=== PATIENT | female | born 1965 | race Caucasian/White ===

== ENCOUNTER → 2016-10-03 | Outpatient (CLI) | payer OTHER ==
[~2016-10-03] MED LIST: BLAC20TA PO; CEPH-367 PO; CINN500C2 PO; DIAZ5TAB PO; DOXY100T9 PO; LOSA50TA2 PO; MELATONIN; METF500T4 PO; MORP30TA81 PO; MORP60TA34 PO; OMEG-69 PO; OTC VITAMINS; REGADENOSON 0.4 MG/5 ML SYRINGE ONE
== END | disposition home or self-care (01) ==
LOC: CFH 07:46
PROVIDERS: ATTEND Internal Medicine Cardiovascular Disease
DX: Z01.810 Encounter for preprocedural cardiovascular examination (principal); I10 Essential (primary) hypertension; E11.9 Type 2 diabetes mellitus without complications; I35.1 Nonrheumatic aortic (valve) insufficiency; I34.0 Nonrheumatic mitral (valve) insufficiency; I07.1 Rheumatic tricuspid insufficiency; I37.1 Nonrheumatic pulmonary valve insufficiency
CPT/HCPCS: 78452; 93017; 93306; A9502; J2785

== ENCOUNTER 2016-12-06 06:07 | Inpatient (IN) | payer OTHER ==
[2016-12-05 12:26] VITALS: BP 131/90
[2016-12-05 12:30] LABS: BLOOD UREA NITROGEN 17 mg/dL (7-18)
[2016-12-05 13:00] LABS: ASPARTATE AMINO TRANSFERASE 13 U/L (15-37); TOTAL IRON BINDING CAPACITY 416 mcg/dL (250-450); TRANSFERRIN 313 mg/dL (200-360)
[~2016-12-06] VITALS: Ht 167.6 cm; Wt 97.0 kg
[~2016-12-06 06:07] MED LIST changes: +ASPI-496 PO; +CARV3.1212 PO; +EXEN5PEN2 INJ; +GARL5000 PO; +METF10002 PO; -REGADENOSON 0.4 MG/5 ML SYRINGE ONE
[2016-12-06] MEDS ORDERED: LACTATED RINGERS 1,000 ML IV SCH (06:46)
[2016-12-06] MEDS ORDERED: MIDAZOLAM 1 MG/ML, 2ML ONE (06:49)
[2016-12-06] MEDS ORDERED: KETAMINE 10 MG/ML, 20ML ONE (06:49)
[2016-12-06] MEDS ORDERED: HYDROmorphone 2 MG/ML, 1ML ONE ×3 (06:49→10:11)
[2016-12-06] MEDS ORDERED: FENTANYL PF 250 MCG/5ML ONE (06:49)
[2016-12-06] MEDS ORDERED: APREPITANT 40 MG CAPSULE PO STA (06:57)
[2016-12-06] MEDS ORDERED: BUPIVACAINE/PF-EPI 0.5% 1:200K ONE (06:58)
[2016-12-06] MEDS ORDERED: MEPERIDINE/PF 25MG/0.5ML IVPush PRN (07:00)
[2016-12-06] MEDS ORDERED: PROMETHAZINE 25 MG/ML, 1ML IV PRN (07:00)
[2016-12-06] MEDS: INSULIN REGULAR 100 UNITS/ML, 3ML VIAL SQ-INSULIN SCH ×2 (07:00→11:00)
[2016-12-06] MEDS ORDERED: FENTANYL PF 100 MCG/2ML IV PRN (07:00)
[2016-12-06] MEDS ORDERED: ACETAMINOPHEN 325 MG TABLET PO PRN (07:00)
[2016-12-06] MEDS ORDERED: OXYcodone 5 MG/5 ML ORAL.SOL UDC PO PRN (07:00)
[2016-12-06] MEDS ORDERED: MIDAZOLAM 1 MG/ML, 2ML IV PRN (07:00)
[2016-12-06] MEDS ORDERED: LABETALOL 5MG/ML, 20ML IV PRN (07:00)
[2016-12-06] MEDS ORDERED: ONDANSETRON 2MG/ML, 2ML IVPush PRN (07:00)
[2016-12-06] MEDS ORDERED: HYDROmorphone 1 MG/ML, 1ML ONE (08:29)
[2016-12-06] MEDS ORDERED: LORazepam 2 MG/ML, 1ML IV PRN (09:00)
[2016-12-06] MEDS ORDERED: DIPHENHYDRAMINE 50 MG/ML, 1ML IV PRN (09:00)
[2016-12-06] MEDS ORDERED: INSULIN SINGLE DOSE, ER SQ-INSULIN ONE (09:18)
[2016-12-06] MEDS ORDERED: INSULIN REGULAR 100 UNITS/ML, 3ML VIAL SQ-INSULIN STA (09:22)
[2016-12-06] MEDS ORDERED: hydrALAzine 20 MG/ML, 1ML ONE (09:43)
[2016-12-06] MEDS ORDERED: ONDANSETRON 2MG/ML, 2ML ONE ×2 (09:43→11:04)
[2016-12-06] MEDS: HYDROmorphone 1 MG/ML, 1ML IV PRN ×8 (09:47→10:53)
[2016-12-06] MEDS: hydrALAzine 20 MG/ML, 1ML IV PRN ×2 (09:50→10:14)
[2016-12-06] MEDS ORDERED: LORazepam 2 MG/ML, 1ML ONE (10:17)
[2016-12-06] MEDS: INSULIN ASPART 100 UNITS/ML, PEN SQ-INSULIN SCH ×3 (11:00→22:17)
[2016-12-06] MEDS ORDERED: DEXAMETHASONE 4 MG/ML, 1ML ONE (11:04)
[2016-12-06] MEDS ORDERED: GLYCOPYRROLATE 0.2MG/1ML ONE (11:04)
[2016-12-06] MEDS ORDERED: PROPOFOL 10 MG/ML, 20ML ONE (11:04)
[2016-12-06] MEDS ORDERED: PHENYLEPHRINE 10 MG/ML ONE (11:04)
[2016-12-06] MEDS ORDERED: ROCURONIUM 10 MG/ML ONE (11:04)
[2016-12-06] MEDS ORDERED: CEFOTETAN 2 GM ONE (11:04)
[2016-12-06] MEDS ORDERED: NEOSTIGMINE 1 MG/ML, 10ML ONE (11:04)
[2016-12-06] MEDS ORDERED: METOCLOPRAMIDE 5 MG/ML, 2ML ONE (11:04)
[2016-12-06 13:05] VITALS: BP 120/81
[2016-12-06] MEDS: FAMOTIDINE 20 MG/2 ML IVPush SCH (13:06)
[2016-12-06] MEDS: POTASSIUM CHLORIDE 20 MEQ in LACTATED RINGERS 1,000 ML IV SCH ×2 (13:06→20:13)
[2016-12-06] MEDS ORDERED: HYDROcodone/APAP 7.5-325MG/15ML UDC ONE (16:03)
[2016-12-06] MEDS: HYDROcodone/APAP 7.5-325MG/15ML UDC PO PRN (16:08)
[2016-12-06] MEDS: ONDANSETRON 2MG/ML, 2ML IVPush PRN (16:08)
[2016-12-06 19:01] VITALS: BP 160/92
[2016-12-06 20:03] VITALS: BP 173/108
[2016-12-06] MEDS: ENALAPRILAT 1.25 MG/ML, 2ML IV PRN (20:14)
[2016-12-06 22:00] VITALS: BP 146/88
[2016-12-07] MEDS: ENALAPRILAT 1.25 MG/ML, 2ML IV PRN ×2 (01:03→05:31)
[2016-12-07 01:07] VITALS: BP 172/90
[2016-12-07 02:18] VITALS: BP 156/79
[2016-12-07] MEDS: POTASSIUM CHLORIDE 20 MEQ in LACTATED RINGERS 1,000 ML IV SCH ×2 (03:11→12:33)
[2016-12-07 04:58] VITALS: BP 175/97
[2016-12-07 05:33] LABS: BLOOD UREA NITROGEN 9 mg/dL (7-18)
[2016-12-07] MEDS: HYDROcodone/APAP 7.5-325MG/15ML UDC PO PRN ×4 (05:55→15:18)
[2016-12-07] MEDS ORDERED: CARVEDILOL 6.25 MG TABLET PO SCH (06:00)
[2016-12-07 06:43] VITALS: BP 150/90
[2016-12-07 07:23] VITALS: BP 160/85
[2016-12-07] MEDS: FAMOTIDINE 20 MG/2 ML IVPush SCH (08:02)
[2016-12-07] MEDS: INSULIN ASPART 100 UNITS/ML, PEN SQ-INSULIN SCH ×2 (08:03→11:22)
[2016-12-07] MEDS ORDERED: LOSARTAN 50MG TABLET PO SCH (09:00)
[2016-12-07 12:35] VITALS: BP 151/92
[2016-12-07] MEDS: ONDANSETRON 2MG/ML, 2ML IVPush PRN (14:07)
== END 2016-12-07 16:00 | disposition home or self-care (01) | DRG 621 ==
LOC: ORIP 06:07 → 4NOR 11:20
PROVIDERS: ADMIT Thoracic Surgery (Cardiothoracic Vascular Surgery); ATTEND Thoracic Surgery (Cardiothoracic Vascular Surgery)
PROC: 0DB64Z3 Excision of Stomach, Percutaneous Endoscopic Approach, Vertical (ICD-10-PCS; principal; 2016-12-06 07:30)
DX: E66.01 Morbid (severe) obesity due to excess calories (principal); E11.9 Type 2 diabetes mellitus without complications; E78.1 Pure hyperglyceridemia; I10 Essential (primary) hypertension; E78.00 Pure hypercholesterolemia, unspecified; Z68.32 Body mass index [BMI] 32.0-32.9, adult; E78.5 Hyperlipidemia, unspecified; Z88.2 Allergy status to sulfonamides; Z88.1 Allergy status to other antibiotic agents; Z91.041 Radiographic dye allergy status; Z85.828 Personal history of other malignant neoplasm of skin; Z96.659 Presence of unspecified artificial knee joint; Z90.710 Acquired absence of both cervix and uterus; Z80.0 Family history of malignant neoplasm of digestive organs; Z83.3 Family history of diabetes mellitus; Z82.49 Family history of ischemic heart disease and other diseases of the circulatory system
CPT/HCPCS: 36415; 80048; 80053; 80061; 82040; 82306; 82607; 82728; 82746; 82962; 83540; 83550; 83970; 84134; 84425; 84466; 85025; 93005; J1100; J1170; J1815; J2250; J2270; J2405; J2704; J2710; J3010; J3480; J3490; J8501; J0360; J2060; J2370; J2765; J7120; S0028; S0074

== ENCOUNTER → 2016-12-15 | Outpatient (CLI) | payer OTHER | END | disposition home or self-care (01) | LOC: LAB 16:22 | PROVIDERS: ATTEND Thoracic Surgery (Cardiothoracic Vascular Surgery) | DX: R19.7 Diarrhea, unspecified (principal) | CPT/HCPCS: 87324; 87493 ==

== ENCOUNTER → 2016-12-26 | Outpatient (CLI) | payer OTHER | LOC: CFH 15:13 | PROVIDERS: ATTEND Internal Medicine Cardiovascular Disease | DX: Z02.9 Encounter for administrative examinations, unspecified (principal) ==

== ENCOUNTER → 2017-01-08 | Outpatient (CLI) | payer OTHER ==
[~2017-01-08] MED LIST changes: +GADOBUTROL 10 MMOL/10 ML VIAL ONE
== END | disposition home or self-care (01) ==
LOC: CFH 15:08
PROVIDERS: ATTEND Internal Medicine Cardiovascular Disease
DX: I71.2 Thoracic aortic aneurysm, without rupture (principal)
CPT/HCPCS: 71555; A9585; C8911

== ENCOUNTER → 2017-04-25 | Outpatient (CLI) | payer OTHER ==
[~2017-04-25] MED LIST changes: -GADOBUTROL 10 MMOL/10 ML VIAL ONE
== END | disposition home or self-care (01) ==
LOC: CFH 15:50
PROVIDERS: ATTEND Obstetrics & Gynecology
DX: Z12.31 Encounter for screening mammogram for malignant neoplasm of breast (principal)
CPT/HCPCS: G0202

== ENCOUNTER 2017-11-14 07:18 | Emergency (ER) | payer OTHER ==
[2017-11-14] MEDS ORDERED: DOXY100C2 PO (07:45)
[2017-11-14] MEDS ORDERED: CEPH-368 PO (07:45)
[2017-11-14 08:00] LABS: BASOPHILS # (AUTO) 0.03 x10^3/uL (0-0.1); BASOPHILS % (AUTO) 1 % (0-1); EOSINOPHILS # (AUTO) 0.31 x10^3/uL (0-0.4); EOSINOPHILS % (AUTO) 5 % (1-7); LYMPHOCYTES # (AUTO) 2.39 x10^3/uL (1-3.4); LYMPHOCYTES % (AUTO) 42 % (22-44); MD NO; MEAN CORPUSCULAR HEMOGLOBIN 27.2 pg (27.0-34.8); MEAN CORPUSCULAR HGB CONC 33.1 g/dL (32.4-35.8); MEAN CORPUSCULAR VOLUME 82.1 fL (80-100); MEAN PLATELET VOLUME 7.1 fL (7.4-10.4); MONOCYTES # (AUTO) 0.51 x10^3/uL (0.2-0.8); MONOCYTES % (AUTO) 9 % (2-9); NEUTROPHILS % (AUTO) 44 % (42-75); PLATELET COUNT 337 x10^3/uL (130-400); RED BLOOD COUNT 4.59 x10^6/uL (3.82-5.3); RED CELL DISTRIBUTION WIDTH 15.3 % (9.6-15.2)
[2017-11-14] MEDS ORDERED: MECLIZINE CHEWABLE 25 MG TAB PO ONE (08:00)
[2017-11-14] MEDS ORDERED: SODIUM CHLORIDE 0.9% 1,000ML IVBOLUS ONE (08:00)
[2017-11-14] MEDS ORDERED: SODIUM CHLORIDE FLUSH 10ML SYR IVF ONE (08:00)
[2017-11-14] MEDS ORDERED: MECLIZINE CHEWABLE 25 MG TAB ONE (08:02)
[2017-11-14 08:10] LABS: ALBUMIN 3.5 g/dL (3.4-5.0); ANION GAP 8 mmol/L (5-15); CALCIUM 8.6 mg/dL (8.5-10.1); CHLORIDE 104 mmol/L (98-107); CREATININE 0.66 mg/dL (0.55-1.02)
[2017-11-14 08:14] LABS: TROPONIN I < 0.015 ng/mL (0.000-0.045)
[2017-11-14] MEDS ORDERED: ONDANSETRON ODT 4 MG ONE (08:48)
[2017-11-14 08:57] LABS: MICROSCOPIC NOT IND
[2017-11-14] MEDS ORDERED: ONDANSETRON ODT 4 MG PO ONE (09:00)
[2017-11-14] MEDS ORDERED: DIAZEPAM 5 MG/ML, 2ML IV ONE (09:00)
[2017-11-14 09:03] LABS: CULTURE INDICATED? NO
[2017-11-14 09:27] VITALS: BP 136/80
== END 2017-11-14 10:27 | disposition home or self-care (01) ==
LOC: ED 08:05
DX: H81.392 Other peripheral vertigo, left ear (principal); H81.12 Benign paroxysmal vertigo, left ear; I10 Essential (primary) hypertension; E11.9 Type 2 diabetes mellitus without complications
CPT/HCPCS: 36415; 70450; 80048; 81003; 82040; 84484; 85025; 93005; 96361; 96374; 99285; J3360; J7030; Q0162

== ENCOUNTER 2018-01-04 06:48 | Day surgery (SDC) | payer OTHER ==
[~2018-01-04] VITALS: Ht 167.6 cm; Wt 80.5 kg
[~2018-01-04 06:48] MED LIST changes: +CEPH-368 PO; +DOXY100C2 PO; -METF500T4 PO; +METF500T5 PO; +MORP30TA PO; +PLEXUS BIOCLEANSE; +PLEXUS PROBIOTIC
[2018-01-04 07:08] VITALS: BP 116/74
[2018-01-04] MEDS ORDERED: LACTATED RINGERS 1,000 ML IV SCH (07:08)
[2018-01-04] MEDS ORDERED: FENTANYL PF 100 MCG/2ML ONE ×3 (08:09→10:12)
[2018-01-04] MEDS ORDERED: MIDAZOLAM 1 MG/ML, 2ML ONE ×3 (08:09→09:01)
[2018-01-04] MEDS ORDERED: PROMETHAZINE 12.5 MG SUPP PR PRN (10:00)
[2018-01-04] MEDS ORDERED: ACETAMINOPHEN 325 MG TABLET PO PRN (10:00)
[2018-01-04] MEDS ORDERED: MEPERIDINE/PF 25MG/0.5ML IVPush PRN (10:00)
[2018-01-04] MEDS ORDERED: ONDANSETRON ODT 8 MG PO PRN (10:00)
[2018-01-04] MEDS ORDERED: HYDROmorphone 2 MG/ML, 1ML IV PRN (10:00)
[2018-01-04] MEDS ORDERED: OXYcodone 5 MG/5 ML ORAL.SOL UDC PO PRN (10:00)
[2018-01-04] MEDS ORDERED: ONDANSETRON ODT 8 MG ONE (10:12)
[2018-01-04] MEDS: FENTANYL PF 100 MCG/2ML IV PRN ×2 (10:16→10:25)
[2018-01-04] MEDS ORDERED: ONDANSETRON 2MG/ML, 2ML ONE (15:55)
[2018-01-04] MEDS ORDERED: PROPOFOL 10 MG/ML, 20ML ONE (15:55)
[2018-01-04] MEDS ORDERED: CEFAZOLIN 1,000 MG ONE (15:55)
== END 2018-01-04 12:00 | disposition home or self-care (01) ==
LOC: OUT 06:48
PROVIDERS: ATTEND Internal Medicine Gastroenterology
DX: D12.3 Benign neoplasm of transverse colon (principal); K21.0 Gastro-esophageal reflux disease with esophagitis; K31.9 Disease of stomach and duodenum, unspecified; K44.9 Diaphragmatic hernia without obstruction or gangrene; E11.9 Type 2 diabetes mellitus without complications; I10 Essential (primary) hypertension; E66.9 Obesity, unspecified; Z98.890 Other specified postprocedural states; Z79.899 Other long term (current) drug therapy
CPT/HCPCS: 43239; 45385; 88305; J0690; J2250; J2405; J2704; J3010; J7120; Q0162

== ENCOUNTER → 2018-02-21 | Outpatient (CLI) | payer OTHER | END | disposition home or self-care (01) | LOC: CVU 16:02 | PROVIDERS: ATTEND Internal Medicine Cardiovascular Disease | DX: I71.2 Thoracic aortic aneurysm, without rupture (principal) | CPT/HCPCS: 93306 ==

== ENCOUNTER → 2018-04-26 | Outpatient (CLI) | payer OTHER ==
[~2018-04-26] MED LIST changes: +METF500T17 PO; -METF500T5 PO
[2018-04-26 07:38] LABS: ALANINE AMINOTRANSFERASE 22 U/L (12-78); ALBUMIN 3.6 g/dL (3.4-5.0); ANION GAP 6 mmol/L (5-15); CALCIUM 8.7 mg/dL (8.5-10.1); CHLORIDE 107 mmol/L (98-107); CHOLESTEROL, TOTAL 174 mg/dL (140-239); CREATININE 0.65 mg/dL (0.55-1.02); TRIGLYCERIDES 177 mg/dL (50-200); VLDL CHOLESTEROL 35 mg/dL (0-25)
[2018-04-26 07:40] LABS: ALKALINE PHOSPHATASE 100 U/L (45-117); BILIRUBIN,TOTAL 0.3 mg/dL (0.2-1.0); CHOL/HDL RATIO 3.9; HDL CHOL % 26 % (28-40); HDL CHOLESTEROL (DIRECT) 45 mg/dL (40-60); LDL CHOLESTEROL,CALCULATED 94 mg/dL (54-169); LDL/HDL RATIO 2.1 (0.5-3.0); TOTAL PROTEIN 7.1 g/dL (6.4-8.2)
[2018-04-26 07:45] LABS: HEMOGLOBIN A1C 6.5 % (4.2-6.3)
[2018-04-26 17:56] LABS: BASOPHILS # (AUTO) 0.03 x10^3/uL (0-0.1); BASOPHILS % (AUTO) 1 % (0-1); EOSINOPHILS # (AUTO) 0.41 x10^3/uL (0-0.4); EOSINOPHILS % (AUTO) 7 % (1-7); LYMPHOCYTES % (AUTO) 39 % (22-44); MD NO; MEAN CORPUSCULAR HGB CONC 32.7 g/dL (32.4-35.8); MEAN CORPUSCULAR VOLUME 82.6 fL (80-100); MEAN PLATELET VOLUME 8.3 fL (7.4-10.4); MONOCYTES # (AUTO) 0.45 x10^3/uL (0.2-0.8); MONOCYTES % (AUTO) 8 % (2-9); NEUTROPHILS # (AUTO) 2.68 x10^3/uL (1.8-6.8); NEUTROPHILS % (AUTO) 46 % (42-75); PLATELET COUNT 300 x10^3/uL (130-400); RED BLOOD COUNT 4.63 x10^6/uL (3.82-5.3); RED CELL DISTRIBUTION WIDTH 15.4 % (9.6-15.2)
[2018-04-26 18:27] LABS: PREALBUMIN 17.4 mg/dL (20.0-40.0)
[2018-04-26 18:30] LABS: FOLATE LEVEL 4.4 ng/mL (3.1-17.5)
[2018-04-26 18:57] LABS: HEMOGLOBIN A1C 6.6 % (4.2-6.3)
== END | disposition home or self-care (01) ==
LOC: LAB 07:08
PROVIDERS: ATTEND Clinical Nurse Specialist
DX: Z01.810 Encounter for preprocedural cardiovascular examination (principal); I10 Essential (primary) hypertension; I71.2 Thoracic aortic aneurysm, without rupture; E11.9 Type 2 diabetes mellitus without complications; E66.9 Obesity, unspecified; E78.1 Pure hyperglyceridemia; E78.2 Mixed hyperlipidemia; R06.02 Shortness of breath; R53.83 Other fatigue; R94.31 Abnormal electrocardiogram [ECG] [EKG]
CPT/HCPCS: 36415; 80053; 80061; 82306; 82607; 82746; 83036; 83540; 83550; 84134; 84425; 85025

== ENCOUNTER → 2018-07-03 | Outpatient (CLI) | payer OTHER | END | disposition home or self-care (01) | LOC: RAD 13:02 | PROVIDERS: ATTEND Internal Medicine Hematology & Oncology | DX: S13.4XXA Sprain of ligaments of cervical spine, initial encounter (principal); S33.5XXA Sprain of ligaments of lumbar spine, initial encounter; S80.01XA Contusion of right knee, initial encounter; M50.322 Other cervical disc degeneration at C5-C6 level; M50.323 Other cervical disc degeneration at C6-C7 level; M51.37 Other intervertebral disc degeneration, lumbosacral region; Z96.651 Presence of right artificial knee joint; X58.XXXD Exposure to other specified factors, subsequent encounter | CPT/HCPCS: 72050; 72110 ==

== ENCOUNTER → 2019-06-04 | Outpatient (CLI) | payer OTHER ==
[~2019-06-04] MED LIST changes: +DOXY-162 PO; -DOXY100T9 PO
== END | disposition home or self-care (01) ==
LOC: CFH 15:29
PROVIDERS: ATTEND Obstetrics & Gynecology
DX: Z12.31 Encounter for screening mammogram for malignant neoplasm of breast (principal)
CPT/HCPCS: 77067

== ENCOUNTER 2019-08-18 06:32 | Outpatient (CLI) | payer OTHER ==
[2019-08-18 06:55] LABS: BASOPHILS # (AUTO) 0.03 x10^3/uL (0-0.1); BASOPHILS % (AUTO) 1 % (0-1); EOSINOPHILS # (AUTO) 0.27 x10^3/uL (0-0.4); EOSINOPHILS % (AUTO) 5 % (1-7); LYMPHOCYTES # (AUTO) 2.18 x10^3/uL (1-3.4); LYMPHOCYTES % (AUTO) 39 % (22-44); MD NO; MEAN CORPUSCULAR HGB CONC 31.8 g/dL (32.4-35.8); MEAN CORPUSCULAR VOLUME 75.4 fL (80-100); MONOCYTES # (AUTO) 0.41 x10^3/uL (0.2-0.8); MONOCYTES % (AUTO) 7 % (2-9); NEUTROPHILS # (AUTO) 2.74 x10^3/uL (1.8-6.8); NEUTROPHILS % (AUTO) 49 % (42-75); PLATELET COUNT 427 x10^3/uL (130-400); RED BLOOD COUNT 4.57 x10^6/uL (3.82-5.3); RED CELL DISTRIBUTION WIDTH 17.1 % (9.6-15.2)
[2019-08-18 07:08] LABS: ALANINE AMINOTRANSFERASE 14 U/L (12-78); ALBUMIN 3.6 g/dL (3.4-5.0); ANION GAP 7 mmol/L (5-15); CALCIUM 8.8 mg/dL (8.5-10.1); CHLORIDE 108 mmol/L (98-107); CREATININE 0.78 mg/dL (0.55-1.02)
[2019-08-18 07:10] LABS: ALKALINE PHOSPHATASE 83 U/L (45-117); BILIRUBIN,TOTAL 0.2 mg/dL (0.2-1.0); CHOL/HDL RATIO 3.7; CHOLESTEROL, TOTAL 197 mg/dL (140-239); HDL CHOL % 27 % (28-40); HDL CHOLESTEROL (DIRECT) 53 mg/dL (40-60); LDL CHOLESTEROL,CALCULATED 115 mg/dL (54-169); LDL/HDL RATIO 2.2 (0.5-3.0); TOTAL PROTEIN 7.7 g/dL (6.4-8.2); TRIGLYCERIDES 146 mg/dL (50-200); VLDL CHOLESTEROL 29 mg/dL (0-25)
== END 2019-08-18 23:59 | disposition home or self-care (01) ==
LOC: LAB 06:32
PROVIDERS: ATTEND Internal Medicine Cardiovascular Disease
DX: I10 Essential (primary) hypertension (principal); E78.2 Mixed hyperlipidemia
CPT/HCPCS: 36415; 80053; 80061; 83036; 85025

== ENCOUNTER 2019-09-18 15:19 | Outpatient (CLI) | payer OTHER ==
[2019-09-18 15:47] LABS: ABSOLUTE RETICS # 0.063 x10^6/uL (0.5-2.5); RED BLOOD COUNT 4.3 x10^6/uL (3.82-5.3); RETICULOCYTE COUNT % 1.47 % (0.5-1.5)
[2019-09-18 15:54] LABS: BASOPHILS # (AUTO) 0.06 x10^3/uL (0-0.1); BASOPHILS % (AUTO) 1 % (0-1); EOSINOPHILS # (AUTO) 0.29 x10^3/uL (0-0.4); EOSINOPHILS % (AUTO) 3 % (1-7); LYMPHOCYTES # (AUTO) 3.05 x10^3/uL (1-3.4); LYMPHOCYTES % (AUTO) 35 % (22-44); MD NO; MEAN CORPUSCULAR HEMOGLOBIN 24.3 pg (27.0-34.8); MEAN CORPUSCULAR HGB CONC 32.3 g/dL (32.4-35.8); MEAN CORPUSCULAR VOLUME 75.2 fL (80-100); MEAN PLATELET VOLUME 7.7 fL (7.4-10.4); MONOCYTES # (AUTO) 0.48 x10^3/uL (0.2-0.8); MONOCYTES % (AUTO) 6 % (2-9); NEUTROPHILS # (AUTO) 4.74 x10^3/uL (1.8-6.8); NEUTROPHILS % (AUTO) 55 % (42-75); PLATELET COUNT 420 x10^3/uL (130-400); RED BLOOD COUNT 4.25 x10^6/uL (3.82-5.3); RED CELL DISTRIBUTION WIDTH 17.5 % (9.6-15.2)
== END 2019-09-18 23:59 | disposition home or self-care (01) ==
LOC: LAB 15:19
PROVIDERS: ATTEND Family Medicine
DX: D50.9 Iron deficiency anemia, unspecified (principal)
CPT/HCPCS: 36415; 82728; 83540; 83550; 85025; 85045

== ENCOUNTER 2020-06-03 05:47 | Day surgery (SDC) | payer OTHER ==
[~2020-06-03] VITALS: Ht 172.7 cm; Wt 80.7 kg
[2020-06-03 06:16] VITALS: BP 154/98
[2020-06-03] MEDS ORDERED: CHLORHEXIDINE 15 ML UDC MM ONE (06:30)
[2020-06-03] MEDS ORDERED: LIDOCAINE-MPF 1%, 2ML INFIL ONE (06:30)
[2020-06-03] MEDS ORDERED: LACTATED RINGERS 1,000 ML IV SCH (06:30)
[2020-06-03] MEDS ORDERED: CHLORHEXIDINE 15 ML UDC ONE (06:36)
[2020-06-03] MEDS ORDERED: LIDOCAINE-MPF 1%, 2ML ONE (06:37)
[2020-06-03] MEDS ORDERED: MIDAZOLAM 1 MG/ML, 2ML ONE (06:43)
[2020-06-03] MEDS ORDERED: FENTANYL PF 250 MCG/5ML ONE (06:43)
[2020-06-03] MEDS ORDERED: PROPOFOL 50 ML ONE (06:47)
[2020-06-03] MEDS ORDERED: DEXAMETHASONE 4 MG/ML, 1ML ONE (06:47)
[2020-06-03] MEDS ORDERED: PROPOFOL 10 MG/ML, 20ML ONE (06:47)
[2020-06-03] MEDS ORDERED: ONDANSETRON 2MG/ML, 2ML ONE (06:47)
[2020-06-03] MEDS ORDERED: CEFAZOLIN 1,000 MG ONE (06:47)
[2020-06-03] MEDS ORDERED: BUPIVACAINE/PF 0.5% ONE (06:52)
[2020-06-03] MEDS ORDERED: SCOPOLAMINE 1MG PATCH TD ONE ×2 (07:27→16:08)
[2020-06-03] MEDS ORDERED: hydrALAzine 20 MG/ML, 1ML IV PRN (07:30)
[2020-06-03] MEDS ORDERED: ACETAMINOPHEN 325 MG TABLET PO PRN (07:30)
[2020-06-03] MEDS ORDERED: HALOPERIDOL 5 MG/ML IV PRN (07:30)
[2020-06-03] MEDS ORDERED: OXYcodone 5 MG/5 ML ORAL.SOL UDC PO PRN (07:30)
[2020-06-03] MEDS ORDERED: morphine SULFATE 10 MG/ML, 1ML IVPush PRN (07:30)
[2020-06-03] MEDS ORDERED: LABETALOL 5MG/ML, 20ML IV PRN (07:30)
[2020-06-03] MEDS ORDERED: PROMETHAZINE 25 MG/ML, 1ML IVPush PRN (07:30)
[2020-06-03] MEDS ORDERED: BUPIVACAINE/PF-EPI 0.5% 1:200K INFIL ONE (07:52)
[2020-06-03] MEDS ORDERED: FENTANYL PF 100 MCG/2ML ONE (08:47)
[2020-06-03] MEDS: FENTANYL PF 100 MCG/2ML IV PRN ×3 (08:48→09:23)
[2020-06-03] MEDS ORDERED: HYDROmorphone 1 MG/ML, 1ML INJ ONE ×3 (08:48→10:11)
[2020-06-03] MEDS ORDERED: MEPERIDINE/PF 25MG/ML,1ML ONE (08:56)
[2020-06-03] MEDS: MEPERIDINE/PF 25MG/0.5ML IVPush PRN ×2 (09:00→09:14)
[2020-06-03] MEDS ORDERED: OXYcodone 5 MG/5 ML ORAL.SOL UDC ONE (09:17)
[2020-06-03] MEDS: HYDROmorphone 1 MG/ML, 1ML INJ IVPush PRN ×6 (09:42→10:23)
[2020-06-03] MEDS ORDERED: ONDA4TAB7 PO (10:47)
== END 2020-06-03 12:10 | disposition home or self-care (01) ==
LOC: OUT 05:47
PROVIDERS: ATTEND Surgery
DX: R22.42 Localized swelling, mass and lump, left lower limb (principal); R22.2 Localized swelling, mass and lump, trunk; E83.59 Other disorders of calcium metabolism; E11.9 Type 2 diabetes mellitus without complications; I10 Essential (primary) hypertension; Z79.891 Long term (current) use of opiate analgesic; Z79.899 Other long term (current) drug therapy; Z88.2 Allergy status to sulfonamides; Z91.041 Radiographic dye allergy status; Z91.013 Allergy to seafood; Z91.048 Other nonmedicinal substance allergy status; Z98.84 Bariatric surgery status
CPT/HCPCS: 21555; 27327; 87635; 88305; 88312; J0690; J1100; J1170; J2175; J2250; J2405; J2704; J3010; J7120